=== PATIENT | female | born 1955 | race Caucasian/White ===

== ENCOUNTER 2017-06-11 15:26 | Outpatient (CLI) | payer OTHER ==
--- NOTE | 2017-06-11 16:17 | RAD ---
LUMBAR SPINE 3 VIEWS: HISTORY: A 61-year-old female with a history of low back pain. FINDINGS: Neutral, flexion, and extension standing lateral views of the lumbar spine are performed. There are some generalized disk-osteophytosis changes, particularly at L3-L4. Lower lumbar spine fac et arthrosis, particularly at L5-S1. No evidence for significant malalignment. No anterior or retro listhesis. IMPRESSION: Spondylosis with disk-osteophytosis and facet arthrosis. No abnormal translational between flexion a nd extension. POS: C
== END 2017-06-11 15:27 | disposition home or self-care (01) ==
LOC: TBSIIMAG 15:26
PROVIDERS: ATTEND Neurological Surgery
DX: M47.26 Other spondylosis with radiculopathy, lumbar region (principal)
CPT/HCPCS: 72100